=== PATIENT | male | born 1950 | race Caucasian/White ===

== ENCOUNTER 2017-02-19 08:58 | Emergency (ER) | payer MEDICAID, MEDICARE ==
[~2017-02-19] VITALS: Ht 182.9 cm; Wt 64.5 kg
[~2017-02-19 08:58] MED LIST: ALBU0.63 NEB; BACL-19 PO; DOXY-168 PO; IBUP200T48 PO; LISI2.5T PO; METH4TAB2 PO; POTA40LI3 PO; PRED10TA PO; PRED20TA PO; THIA100T10 PO
[2017-02-19] MEDS ORDERED: METOPROLOL 1 MG/ML, 5ML IVPush ONE (09:55)
[2017-02-19] MEDS ORDERED: ASPIRIN 81 MG TABLET CHEW PO ONE (10:00)
[2017-02-19] MEDS ORDERED: SODIUM CHLORIDE FLUSH 10ML SYR IVF ONE (10:00)
[2017-02-19] MEDS ORDERED: ASPIRIN 81 MG TABLET CHEW ONE (10:00)
[2017-02-19] MEDS ORDERED: SODIUM CHLORIDE 0.9% 1,000ML IVBOLUS ONE (10:00)
[2017-02-19] MEDS ORDERED: METOPROLOL 1 MG/ML, 5ML ONE (10:00)
[2017-02-19 10:32] LABS: BLOOD UREA NITROGEN 19 mg/dL (7-18)
[2017-02-19 10:37] LABS: ASPARTATE AMINO TRANSFERASE 48 U/L (15-37)
[2017-02-19 10:38] LABS: IS PT STATUS REG ER OR PRE ER? YES
[2017-02-19] MEDS ORDERED: OXYcodone/APAP 5/325MG TABLET ONE (11:30)
[2017-02-19] MEDS ORDERED: OXYcodone/APAP 5/325MG TABLET PO ONE (11:30)
[2017-02-19 12:23] VITALS: BP 148/86
== END 2017-02-19 12:28 | disposition home or self-care (01) ==
LOC: ED 12:22
DX: R07.89 Other chest pain (principal); J44.9 Chronic obstructive pulmonary disease, unspecified
CPT/HCPCS: 36415; 71010; 80053; 83605; 84484; 85025; 93005; 96360; 96361; 99285; J7030

== ENCOUNTER 2018-02-18 11:15 | Emergency (ER) | payer MEDICARE ==
[~2018-02-18] VITALS: Ht 182.9 cm; Wt 59.8 kg
[~2018-02-18 11:15] MED LIST changes: +BUDE10.2 INH; +CEFD300C37 PO; -DOXY-168 PO; +DOXY100T PO; +DOXY100T10 PO; +FOLI-17 PO; -IBUP200T48 PO; +IBUP200T49 PO; +NICO-487 TD; +THIA100T6 PO; +TIOT18CA INH
[2018-02-18 11:22] VITALS: BP 143/83
[2018-02-18] MEDS ORDERED: DIPHENHYDRAMINE 25 MG CAPSULE PO ONE (11:30)
[2018-02-18] MEDS ORDERED: DIPHENHYDRAMINE 50 MG CAPSULE ONE (11:52)
== END 2018-02-18 11:59 | disposition home or self-care (01) ==
LOC: ED 11:30
DX: B86 Scabies (principal)
CPT/HCPCS: 99283; Q0163

== ENCOUNTER 2018-03-09 23:25 | Inpatient (IN) | payer MEDICARE ==
[~2018-03-09] VITALS: Ht 182.9 cm; Wt 59.0 kg
[~2018-03-09 23:25] MED LIST changes: -POTA40LI3 PO; +POTA40LI7 PO
[2018-03-10] MEDS ORDERED: ALBUTEROL SULFATE 2.5 MG/3 ML NPPB ONE
[2018-03-10] MEDS ORDERED: methylPREDNISolone SOD SUCC 125 MG/2 ML IVP ONE
[2018-03-10] MEDS ORDERED: methylPREDNISolone SOD SUCC 125 MG/2 ML ONE (00:13)
[2018-03-10 00:20] LABS: BASOPHILS # (AUTO) 0.05 x10^3/uL (0-0.1); BASOPHILS % (AUTO) 1 % (0-1); EOSINOPHILS # (AUTO) 0.55 x10^3/uL (0-0.4); EOSINOPHILS % (AUTO) 7 % (1-7); LYMPHOCYTES % (AUTO) 16 % (22-44); MD NO; MEAN CORPUSCULAR HEMOGLOBIN 33.5 pg (27.5-34.5); MEAN CORPUSCULAR VOLUME 101.4 fL (81-97); MEAN PLATELET VOLUME 8.2 fL (7.4-10.4); MONOCYTES # (AUTO) 0.97 x10^3/uL (0.2-0.8); MONOCYTES % (AUTO) 13 % (2-9); NEUTROPHILS # (AUTO) 4.97 x10^3/uL (1.8-6.8); NEUTROPHILS % (AUTO) 64 % (42-75); PLATELET COUNT 293 x10^3/uL (130-400); RED BLOOD COUNT 4.24 x10^6/uL (4.38-5.82); RED CELL DISTRIBUTION WIDTH 15.3 % (9.4-14.8)
[2018-03-10] MEDS ORDERED: ALBUTEROL SULFATE 2.5 MG/3 ML ONE (00:22)
[2018-03-10 00:27] LABS: ALBUMIN 3.2 g/dL (3.4-5.0); ANION GAP 8 mmol/L (5-15); CALCIUM 8.6 mg/dL (8.5-10.1); CHLORIDE 98 mmol/L (98-107); CREATININE 0.77 mg/dL (0.7-1.3)
[2018-03-10 00:30] LABS: TROPONIN I < 0.015 ng/mL (0.000-0.045)
[2018-03-10] MEDS ORDERED: PLEASE ENTER WEIGHT MC SCH (00:30)
[2018-03-10] MEDS ORDERED: AZITHROMYCIN 500 MG in SODIUM CHLORIDE 0.9% 250 ML IV ONE (02:30)
[2018-03-10] MEDS ORDERED: POLYETHYLENE GLYCOL 17 GM PACKET PO PRN (03:00)
[2018-03-10] MEDS ORDERED: hydrALAzine 20 MG/ML, 1ML IVPush PRN (03:00)
[2018-03-10] MEDS ORDERED: POTASSIUM CHLORIDE 20 MEQ TAB.ER.PRT PO ONE (03:00)
[2018-03-10] MEDS ORDERED: GUAIFENESIN/DM 200-20MG, 10ML UDC PO PRN (03:00)
[2018-03-10] MEDS ORDERED: ONDANSETRON ODT 4 MG PO PRN (03:00)
[2018-03-10] MEDS ORDERED: ACETAMINOPHEN 325 MG TABLET PO PRN (03:00)
[2018-03-10] MEDS ORDERED: ALBUTEROL/IPRATROPIUM 2.5MG/0.5MG, 3 ML NPPB PRN (03:30)
[2018-03-10 03:37] VITALS: BP 130/73
[2018-03-10] MEDS ORDERED: PIPERONYL BUTOXIDE/PYRETHRINS SHAMPOO TP SCH (04:00)
[2018-03-10] MEDS ORDERED: PERMETHRIN CRM 5%, 60GM TP SCH (04:00)
[2018-03-10] MEDS: ENOXAPARIN 40 MG/0.4 ML SQ SCH (05:11)
[2018-03-10] MEDS: SODIUM CHLORIDE 0.9% 1,000 ML IV SCH ×2 (05:11→12:59)
[2018-03-10] MEDS: ALBUTEROL/IPRATROPIUM 2.5MG/0.5MG, 3 ML NPPB SCH ×4 (07:00→19:20)
[2018-03-10 08:49] VITALS: BP 106/66
[2018-03-10] MEDS: DOXYCYCLINE 100MG TABLET PO SCH ×2 (08:51→19:59)
[2018-03-10] MEDS: PANTOPROZOLE 40MG TABLET PO SCH (08:51)
[2018-03-10] MEDS: FLUTICASONE/VILANTEROL 200-25MCG/INH INH SCH (08:51)
[2018-03-10 15:10] VITALS: BP 100/63
[2018-03-10 20:32] VITALS: BP 91/48
[2018-03-11 00:28] VITALS: BP 115/62
[2018-03-11] MEDS: ENOXAPARIN 40 MG/0.4 ML SQ SCH (04:51)
[2018-03-11 05:48] LABS: BASOPHILS # (AUTO) 0.08 x10^3/uL (0-0.1); BASOPHILS % (AUTO) 1 % (0-1); EOSINOPHILS # (AUTO) 0.14 x10^3/uL (0-0.4); EOSINOPHILS % (AUTO) 2 % (1-7); LYMPHOCYTES # (AUTO) 1.42 x10^3/uL (1-3.4); LYMPHOCYTES % (AUTO) 15 % (22-44); MD NO; MEAN CORPUSCULAR HEMOGLOBIN 33.2 pg (27.5-34.5); MEAN CORPUSCULAR HGB CONC 33.1 g/dL (33.2-36.2); MEAN CORPUSCULAR VOLUME 100.1 fL (81-97); MEAN PLATELET VOLUME 8.4 fL (7.4-10.4); MONOCYTES # (AUTO) 0.84 x10^3/uL (0.2-0.8); MONOCYTES % (AUTO) 9 % (2-9); NEUTROPHILS # (AUTO) 7.08 x10^3/uL (1.8-6.8); NEUTROPHILS % (AUTO) 74 % (42-75); PLATELET COUNT 277 x10^3/uL (130-400); RED BLOOD COUNT 3.86 x10^6/uL (4.38-5.82); RED CELL DISTRIBUTION WIDTH 14.5 % (9.4-14.8)
[2018-03-11 05:53] LABS: ALBUMIN 2.5 g/dL (3.4-5.0); ANION GAP 4 mmol/L (5-15); CALCIUM 8.5 mg/dL (8.5-10.1); CHLORIDE 107 mmol/L (98-107); CREATININE 0.69 mg/dL (0.7-1.3)
[2018-03-11] MEDS: ALBUTEROL/IPRATROPIUM 2.5MG/0.5MG, 3 ML NPPB SCH ×3 (07:50→20:00)
[2018-03-11 08:22] VITALS: BP 115/66
[2018-03-11] MEDS: PANTOPROZOLE 40MG TABLET PO SCH (08:50)
[2018-03-11] MEDS: FLUTICASONE/VILANTEROL 200-25MCG/INH INH SCH (08:50)
[2018-03-11] MEDS: DOXYCYCLINE 100MG TABLET PO SCH ×2 (08:50→21:16)
[2018-03-11 12:35] VITALS: BP 100/62
[2018-03-11 19:20] VITALS: BP 125/68
[2018-03-12 02:13] VITALS: BP 127/77
[2018-03-12] MEDS: ENOXAPARIN 40 MG/0.4 ML SQ SCH (05:47)
[2018-03-12] MEDS: ALBUTEROL/IPRATROPIUM 2.5MG/0.5MG, 3 ML NPPB SCH ×4 (06:41→20:00)
[2018-03-12 07:10] VITALS: BP 122/75
[2018-03-12] MEDS: PANTOPROZOLE 40MG TABLET PO SCH (08:42)
[2018-03-12] MEDS: FLUTICASONE/VILANTEROL 200-25MCG/INH INH SCH (08:42)
[2018-03-12] MEDS: DOXYCYCLINE 100MG TABLET PO SCH ×2 (08:42→21:03)
[2018-03-12] MEDS ORDERED: FLUT1BLS INH (12:18)
[2018-03-12] MEDS ORDERED: DOXY100T PO (12:18)
[2018-03-12 14:06] VITALS: BP 105/61
[2018-03-12 19:00] VITALS: BP 128/73
[2018-03-13 03:40] VITALS: BP 133/74
[2018-03-13] MEDS: ENOXAPARIN 40 MG/0.4 ML SQ SCH (05:00)
[2018-03-13] MEDS: ALBUTEROL/IPRATROPIUM 2.5MG/0.5MG, 3 ML NPPB SCH ×3 (06:48→20:36)
[2018-03-13 07:56] VITALS: BP 124/77
[2018-03-13] MEDS: PANTOPROZOLE 40MG TABLET PO SCH (09:14)
[2018-03-13] MEDS: FLUTICASONE/VILANTEROL 200-25MCG/INH INH SCH (09:14)
[2018-03-13] MEDS: DOXYCYCLINE 100MG TABLET PO SCH ×2 (09:14→21:08)
[2018-03-13] MEDS ORDERED: ALBUTEROL SULFATE 2.5 MG/3 ML NPPB PRN (10:30)
[2018-03-13 14:00] VITALS: BP 114/65
[2018-03-13 20:59] VITALS: BP 124/65
[2018-03-14 03:29] VITALS: BP 103/44
[2018-03-14] MEDS: ENOXAPARIN 40 MG/0.4 ML SQ SCH (05:01)
[2018-03-14 06:55] VITALS: BP 134/77
[2018-03-14] MEDS: FLUTICASONE/VILANTEROL 200-25MCG/INH INH SCH (08:38)
[2018-03-14] MEDS: DOXYCYCLINE 100MG TABLET PO SCH (08:38)
[2018-03-14] MEDS: PANTOPROZOLE 40MG TABLET PO SCH (08:38)
[2018-03-14] MEDS: ALBUTEROL/IPRATROPIUM 2.5MG/0.5MG, 3 ML NPPB SCH ×2 (09:00→11:40)
[2018-03-14 12:30] VITALS: BP 116/66
== END 2018-03-14 16:00 | disposition home or self-care (01) | DRG 189 ==
LOC: ED 23:59 → EDIP 03-10 02:16 → 5SO 03-10 03:31 → 3NE 03-11 17:47 → DCLOUNGE 03-14 15:47
PROVIDERS: ADMIT Hospitalist; ATTEND Hospitalist
DX: J96.21 Acute and chronic respiratory failure with hypoxia (principal); E43 Unspecified severe protein-calorie malnutrition; J44.1 Chronic obstructive pulmonary disease with (acute) exacerbation; Z68.1 Body mass index [BMI] 19.9 or less, adult; B85.0 Pediculosis due to Pediculus humanus capitis; E87.6 Hypokalemia; I27.20 Pulmonary hypertension, unspecified; F12.90 Cannabis use, unspecified, uncomplicated; F17.210 Nicotine dependence, cigarettes, uncomplicated; F10.20 Alcohol dependence, uncomplicated; Z59.0 Homelessness; Z99.81 Dependence on supplemental oxygen
CPT/HCPCS: 36415; 71045; 80048; 82040; 83735; 84100; 84484; 85025; 93005; 93306; 94640; 96374; J0456; J1650; J7613; J7620; J2930; J7030; J7050

== ENCOUNTER 2018-08-14 16:26 | Emergency (ER) | payer MEDICARE ==
[~2018-08-14] VITALS: Ht 182.9 cm; Wt 68.0 kg
[~2018-08-14 16:26] MED LIST changes: +FLUT1BLS INH; -THIA100T6 PO; +THIA100T67 PO
[2018-08-14] MEDS ORDERED: ACETAMINOPHEN 500 MG TABLET ONE (16:40)
[2018-08-14] MEDS ORDERED: ACETAMINOPHEN 500 MG TABLET PO ONE (17:00)
[2018-08-14 17:02] LABS: BASOPHILS # (AUTO) 0.04 x10^3/uL (0-0.1); BASOPHILS % (AUTO) 0 % (0-1); EOSINOPHILS # (AUTO) 0.01 x10^3/uL (0-0.4); EOSINOPHILS % (AUTO) 0 % (1-7); LYMPHOCYTES # (AUTO) 0.92 x10^3/uL (1-3.4); LYMPHOCYTES % (AUTO) 8 % (22-44); MD NO; MEAN CORPUSCULAR HEMOGLOBIN 32.9 pg (27.5-34.5); MEAN CORPUSCULAR HGB CONC 33.5 g/dL (33.2-36.2); MEAN CORPUSCULAR VOLUME 98.3 fL (81-97); MEAN PLATELET VOLUME 8.1 fL (7.4-10.4); MONOCYTES % (AUTO) 7 % (2-9); NEUTROPHILS # (AUTO) 9.94 x10^3/uL (1.8-6.8); NEUTROPHILS % (AUTO) 85 % (42-75); PLATELET COUNT 286 x10^3/uL (130-400); RED BLOOD COUNT 4.58 x10^6/uL (4.38-5.82); RED CELL DISTRIBUTION WIDTH 16.3 % (9.4-14.8)
[2018-08-14 17:12] LABS: ALANINE AMINOTRANSFERASE 26 U/L (12-78); ALBUMIN 3.7 g/dL (3.4-5.0); ANION GAP 5 mmol/L (5-15); CALCIUM 8.8 mg/dL (8.5-10.1); CHLORIDE 97 mmol/L (98-107); CREATININE 0.98 mg/dL (0.7-1.3)
[2018-08-14 17:17] LABS: ALKALINE PHOSPHATASE 63 U/L (45-117); BILIRUBIN,TOTAL 0.5 mg/dL (0.2-1.0); TOTAL PROTEIN 8.7 g/dL (6.4-8.2); TROPONIN I < 0.015 ng/mL (0.000-0.045)
[2018-08-14 17:30] LABS: RAPID INFLUENZA A Negative (Negative); RAPID INFLUENZA B Negative (Negative)
[2018-08-14] MEDS ORDERED: IBUPROFEN 600 MG TABLET ONE (17:46)
[2018-08-14 17:49] VITALS: BP 109/64
[2018-08-14] MEDS ORDERED: IBUPROFEN 200 MG TABLET PO ONE (18:00)
== END 2018-08-14 18:21 | disposition home or self-care (01) ==
LOC: ED 16:51
DX: J06.9 Acute upper respiratory infection, unspecified (principal); J43.9 Emphysema, unspecified; F17.200 Nicotine dependence, unspecified, uncomplicated
CPT/HCPCS: 36415; 71045; 80053; 83605; 83880; 84484; 85025; 87040; 87400; 99284

== ENCOUNTER 2018-09-17 12:53 | Emergency (ER) | payer MEDICARE ==
[~2018-09-17] VITALS: Ht 182.9 cm; Wt 62.0 kg
[2018-09-17 13:35] VITALS: BP 123/66
[2018-09-17] MEDS ORDERED: hydrOXyzine 50MG TABLET ONE (14:04)
== END 2018-09-17 14:12 | disposition home or self-care (01) ==
LOC: ED 13:50
DX: Z20.7 Contact with and (suspected) exposure to pediculosis, acariasis and other infestations (principal); F17.200 Nicotine dependence, unspecified, uncomplicated
CPT/HCPCS: 99283; Q0177

== ENCOUNTER 2018-10-21 20:41 | Inpatient (IN) | payer MEDICARE ==
[~2018-10-21] VITALS: Ht 167.6 cm; Wt 65.9 kg
[2018-10-21] MEDS: ALBUTEROL/IPRATROPIUM 2.5MG/0.5MG, 3 ML NPPB SCH ×2 (22:24→23:18)
[2018-10-21 22:41] LABS: BASOPHILS # (AUTO) 0.04 x10^3/uL (0-0.1); BASOPHILS % (AUTO) 0 % (0-1); EOSINOPHILS # (AUTO) 0.91 x10^3/uL (0-0.4); EOSINOPHILS % (AUTO) 7 % (1-7); LYMPHOCYTES # (AUTO) 1.31 x10^3/uL (1-3.4); LYMPHOCYTES % (AUTO) 9 % (22-44); MD NO; MEAN CORPUSCULAR HEMOGLOBIN 33.1 pg (27.5-34.5); MEAN CORPUSCULAR HGB CONC 33.3 g/dL (33.2-36.2); MEAN CORPUSCULAR VOLUME 99.4 fL (81-97); MEAN PLATELET VOLUME 8.1 fL (7.4-10.4); MONOCYTES # (AUTO) 1.01 x10^3/uL (0.2-0.8); MONOCYTES % (AUTO) 7 % (2-9); NEUTROPHILS # (AUTO) 10.89 x10^3/uL (1.8-6.8); NEUTROPHILS % (AUTO) 77 % (42-75); PLATELET COUNT 245 x10^3/uL (130-400); RED BLOOD COUNT 3.71 x10^6/uL (4.38-5.82); RED CELL DISTRIBUTION WIDTH 16.1 % (9.4-14.8)
[2018-10-21 22:52] LABS: ALBUMIN 2.8 g/dL (3.4-5.0); ANION GAP 5 mmol/L (5-15); CALCIUM 8.3 mg/dL (8.5-10.1); CHLORIDE 101 mmol/L (98-107); CREATININE 0.66 mg/dL (0.7-1.3)
[2018-10-22] MEDS ORDERED: SODIUM CHLORIDE FLUSH 10ML SYR IVF PRN
--- NOTE | 2018-10-22 00:25 | NUR ---
REPORT GIVEN TO POLO COWAN
[2018-10-22 00:45] VITALS: BP 123/66
[2018-10-22] MEDS ORDERED: ONDANSETRON ODT 4 MG PO PRN (01:00)
[2018-10-22] MEDS ORDERED: BISACODYL 10 MG SUPP PR PRN (01:00)
[2018-10-22] MEDS ORDERED: ALBUTEROL SULFATE 2.5 MG/3 ML NPPB SCH (01:00)
[2018-10-22 01:22] LABS: FOLATE LEVEL 10.6 ng/mL (3.1-17.5)
[2018-10-22] MEDS: CEFTRIAXONE PMX 1GM/50ML 50 ML IV SCH (01:48)
[2018-10-22] MEDS: methylPREDNISolone SOD SUCC 125 MG/2 ML IVPush SCH ×4 (01:49→19:46)
[2018-10-22] MEDS: HEPARIN 5,000 UNITS/ML, 1ML SQ SCH ×3 (01:49→19:46)
[2018-10-22] MEDS: SODIUM CHLORIDE 0.9% 1,000 ML IV SCH ×3 (01:49→23:07)
[2018-10-22] MEDS: GUAIFENESIN/DM 200-20MG, 10ML UDC PO PRN (01:50)
[2018-10-22] MEDS: ACETAMINOPHEN 325 MG TABLET PO PRN ×3 (01:50→23:06)
[2018-10-22] MEDS: NICOTINE 14MG/24 HR PATCH.TD24 TD SCH (01:51)
[2018-10-22] MEDS: DOXYCYCLINE 100 MG in DEXTROSE 5% 250 ML IV SCH ×2 (03:03→15:42)
[2018-10-22 04:50] LABS: MEAN CORPUSCULAR HEMOGLOBIN 32.9 pg (27.5-34.5); MEAN CORPUSCULAR HGB CONC 32.8 g/dL (33.2-36.2); MEAN CORPUSCULAR VOLUME 100.4 fL (81-97); MEAN PLATELET VOLUME 8.4 fL (7.4-10.4); PLATELET COUNT 246 x10^3/uL (130-400); RED BLOOD COUNT 4.17 x10^6/uL (4.38-5.82); RED CELL DISTRIBUTION WIDTH 16.2 % (9.4-14.8)
[2018-10-22 05:00] LABS: ALANINE AMINOTRANSFERASE 15 U/L (12-78); ALBUMIN 2.8 g/dL (3.4-5.0); ANION GAP 3 mmol/L (5-15); CALCIUM 8.4 mg/dL (8.5-10.1); CHLORIDE 101 mmol/L (98-107); CREATININE 0.82 mg/dL (0.7-1.3)
[2018-10-22 05:02] LABS: ALKALINE PHOSPHATASE 59 U/L (45-117); BILIRUBIN,TOTAL 0.5 mg/dL (0.2-1.0); TOTAL PROTEIN 7.1 g/dL (6.4-8.2)
[2018-10-22 05:51] LABS: BASOPHILS # (AUTO) 0.01 x10^3/uL (0-0.1); BASOPHILS % (AUTO) 0 % (0-1); EOSINOPHILS % (AUTO) 0 % (1-7); LYMPHOCYTES # (AUTO) 0.45 x10^3/uL (1-3.4); LYMPHOCYTES % (AUTO) 3 % (22-44); MD SCAN; MONOCYTES # (AUTO) 0.07 x10^3/uL (0.2-0.8); MONOCYTES % (AUTO) 0 % (2-9); NEUTROPHILS # (AUTO) 15.93 x10^3/uL (1.8-6.8); NEUTROPHILS % (AUTO) 97 % (42-75)
[2018-10-22] MEDS: ALBUTEROL SULFATE 2.5 MG/3 ML NPPB SCH ×3 (07:55→21:26)
[2018-10-22] MEDS: BUDESONIDE 0.5 MG/2 ML INHA NPPB SCH ×2 (07:55→21:26)
[2018-10-22] MEDS: SENNA/DOCUSATE TABLET PO SCH (08:20)
[2018-10-22 09:13] VITALS: BP 100/62
[2018-10-22 15:22] VITALS: BP 105/50
[2018-10-22 20:25] VITALS: BP 115/51
[2018-10-23] MEDS: NICOTINE 14MG/24 HR PATCH.TD24 TD SCH (01:30)
[2018-10-23] MEDS: CEFTRIAXONE PMX 1GM/50ML 50 ML IV SCH (01:30)
[2018-10-23] MEDS: methylPREDNISolone SOD SUCC 125 MG/2 ML IVPush SCH ×4 (01:30→20:53)
[2018-10-23] MEDS: DIPHENHYDRAMINE 25 MG CAPSULE PO PRN ×2 (01:57→15:22)
[2018-10-23] MEDS: GUAIFENESIN/DM 200-20MG, 10ML UDC PO PRN (01:57)
[2018-10-23 02:10] VITALS: BP 97/42
[2018-10-23] MEDS: ALBUTEROL SULFATE 2.5 MG/3 ML NPPB SCH ×4 (03:03→21:00)
[2018-10-23] MEDS: DOXYCYCLINE 100 MG in DEXTROSE 5% 250 ML IV SCH ×2 (03:18→14:58)
[2018-10-23] MEDS: HEPARIN 5,000 UNITS/ML, 1ML SQ SCH ×3 (04:29→20:53)
[2018-10-23 06:01] LABS: MEAN CORPUSCULAR HEMOGLOBIN 32.7 pg (27.5-34.5); MEAN CORPUSCULAR HGB CONC 32.7 g/dL (33.2-36.2); MEAN CORPUSCULAR VOLUME 100.2 fL (81-97); MEAN PLATELET VOLUME 8.8 fL (7.4-10.4); PLATELET COUNT 229 x10^3/uL (130-400); RED BLOOD COUNT 3.66 x10^6/uL (4.38-5.82); RED CELL DISTRIBUTION WIDTH 16.1 % (9.4-14.8)
[2018-10-23 06:07] LABS: ANION GAP 4 mmol/L (5-15); CALCIUM 8.9 mg/dL (8.5-10.1); CHLORIDE 102 mmol/L (98-107)
[2018-10-23 06:09] LABS: CREATININE 0.66 mg/dL (0.7-1.3)
[2018-10-23 06:33] LABS: BASOPHILS # (AUTO) 0.05 x10^3/uL (0-0.1); BASOPHILS % (AUTO) 0 % (0-1); EOSINOPHILS % (AUTO) 0 % (1-7); LYMPHOCYTES % (AUTO) 5 % (22-44); MD SCAN; MONOCYTES # (AUTO) 0.54 x10^3/uL (0.2-0.8); MONOCYTES % (AUTO) 3 % (2-9); NEUTROPHILS # (AUTO) 17.78 x10^3/uL (1.8-6.8); NEUTROPHILS % (AUTO) 92 % (42-75)
[2018-10-23 08:39] VITALS: BP 110/60
[2018-10-23] MEDS: BUDESONIDE 0.5 MG/2 ML INHA NPPB SCH ×2 (08:46→21:00)
[2018-10-23] MEDS: SODIUM CHLORIDE 0.9% 1,000 ML IV SCH ×2 (08:52→20:09)
[2018-10-23] MEDS: GUAIFENESIN ER 600 MG TABLET PO SCH ×2 (08:52→20:53)
[2018-10-23] MEDS: SENNA/DOCUSATE TABLET PO SCH (08:53)
[2018-10-23 13:12] VITALS: BP 115/55
[2018-10-23] MEDS: POLYETHYLENE GLYCOL 17 GM PACKET PO PRN (15:22)
[2018-10-23] MEDS: ACETAMINOPHEN 325 MG TABLET PO PRN (16:03)
[2018-10-24] MEDS: NICOTINE 14MG/24 HR PATCH.TD24 TD SCH (01:08)
[2018-10-24] MEDS: CEFTRIAXONE PMX 1GM/50ML 50 ML IV SCH (01:08)
[2018-10-24 01:12] VITALS: BP 100/50
[2018-10-24] MEDS: methylPREDNISolone SOD SUCC 125 MG/2 ML IVPush SCH ×3 (02:52→20:17)
[2018-10-24] MEDS: DOXYCYCLINE 100 MG in DEXTROSE 5% 250 ML IV SCH ×2 (02:52→14:48)
[2018-10-24] MEDS: ALBUTEROL SULFATE 2.5 MG/3 ML NPPB SCH ×4 (03:40→19:51)
[2018-10-24] MEDS: HEPARIN 5,000 UNITS/ML, 1ML SQ SCH ×3 (04:07→20:17)
[2018-10-24] MEDS: DIPHENHYDRAMINE 25 MG CAPSULE PO PRN ×2 (05:54→20:16)
[2018-10-24 08:04] LABS: MEAN CORPUSCULAR HEMOGLOBIN 32.2 pg (27.5-34.5); MEAN CORPUSCULAR HGB CONC 32.1 g/dL (33.2-36.2); MEAN CORPUSCULAR VOLUME 100.4 fL (81-97); PLATELET COUNT 263 x10^3/uL (130-400); RED BLOOD COUNT 3.68 x10^6/uL (4.38-5.82); RED CELL DISTRIBUTION WIDTH 15.8 % (9.4-14.8)
[2018-10-24 08:06] VITALS: BP 102/54
[2018-10-24 08:42] LABS: BASOPHILS # (AUTO) 0.02 x10^3/uL (0-0.1); BASOPHILS % (AUTO) 0 % (0-1); EOSINOPHILS % (AUTO) 0 % (1-7); LYMPHOCYTES # (AUTO) 0.89 x10^3/uL (1-3.4); LYMPHOCYTES % (AUTO) 5 % (22-44); MD SCAN; MONOCYTES # (AUTO) 0.49 x10^3/uL (0.2-0.8); MONOCYTES % (AUTO) 3 % (2-9); NEUTROPHILS # (AUTO) 18.04 x10^3/uL (1.8-6.8); NEUTROPHILS % (AUTO) 93 % (42-75)
[2018-10-24] MEDS: BUDESONIDE 0.5 MG/2 ML INHA NPPB SCH ×2 (09:00→19:51)
[2018-10-24] MEDS: SENNA/DOCUSATE TABLET PO SCH (09:14)
[2018-10-24] MEDS: GUAIFENESIN ER 600 MG TABLET PO SCH ×2 (09:14→20:17)
[2018-10-24] MEDS: SODIUM CHLORIDE 0.9% 1,000 ML IV SCH ×2 (09:17→20:16)
[2018-10-24] MEDS: POLYETHYLENE GLYCOL 17 GM PACKET PO PRN (09:19)
[2018-10-24 13:32] VITALS: BP 140/68
[2018-10-24] MEDS: ACETAMINOPHEN 325 MG TABLET PO PRN (17:52)
[2018-10-24 19:26] VITALS: BP 117/57
[2018-10-25 00:53] VITALS: BP 113/54
[2018-10-25] MEDS: CEFTRIAXONE PMX 1GM/50ML 50 ML IV SCH (01:28)
[2018-10-25] MEDS: NICOTINE 14MG/24 HR PATCH.TD24 TD SCH (01:28)
[2018-10-25] MEDS: ALBUTEROL SULFATE 2.5 MG/3 ML NPPB SCH ×4 (02:16→20:01)
[2018-10-25] MEDS: DOXYCYCLINE 100 MG in DEXTROSE 5% 250 ML IV SCH (03:30)
[2018-10-25] MEDS: HEPARIN 5,000 UNITS/ML, 1ML SQ SCH ×3 (03:31→20:22)
[2018-10-25] MEDS: ACETAMINOPHEN 325 MG TABLET PO PRN (05:48)
[2018-10-25] MEDS: DIPHENHYDRAMINE 25 MG CAPSULE PO PRN ×2 (05:48→20:25)
[2018-10-25] MEDS: BUDESONIDE 0.5 MG/2 ML INHA NPPB SCH ×2 (06:37→20:01)
[2018-10-25 06:47] LABS: BASOPHILS # (AUTO) 0.06 x10^3/uL (0-0.1); BASOPHILS % (AUTO) 0 % (0-1); EOSINOPHILS # (AUTO) 0.01 x10^3/uL (0-0.4); EOSINOPHILS % (AUTO) 0 % (1-7); LYMPHOCYTES # (AUTO) 1.86 x10^3/uL (1-3.4); LYMPHOCYTES % (AUTO) 12 % (22-44); MD NO; MEAN CORPUSCULAR HEMOGLOBIN 32.6 pg (27.5-34.5); MEAN CORPUSCULAR HGB CONC 32.7 g/dL (33.2-36.2); MEAN CORPUSCULAR VOLUME 99.6 fL (81-97); MEAN PLATELET VOLUME 8.1 fL (7.4-10.4); MONOCYTES # (AUTO) 1.09 x10^3/uL (0.2-0.8); MONOCYTES % (AUTO) 7 % (2-9); NEUTROPHILS # (AUTO) 13.14 x10^3/uL (1.8-6.8); NEUTROPHILS % (AUTO) 81 % (42-75); PLATELET COUNT 258 x10^3/uL (130-400); RED BLOOD COUNT 3.84 x10^6/uL (4.38-5.82); RED CELL DISTRIBUTION WIDTH 15.6 % (9.4-14.8)
[2018-10-25 07:30] VITALS: BP 123/71
[2018-10-25] MEDS: GUAIFENESIN ER 600 MG TABLET PO SCH ×2 (08:47→20:22)
[2018-10-25] MEDS: SENNA/DOCUSATE TABLET PO SCH (08:47)
[2018-10-25] MEDS: methylPREDNISolone SOD SUCC 125 MG/2 ML IVPush SCH (08:49)
[2018-10-25] MEDS: SODIUM CHLORIDE 0.9% 1,000 ML IV SCH (08:49)
[2018-10-25] MEDS: CEFDINIR 300 MG CAPSULE PO SCH ×2 (09:38→20:22)
[2018-10-25] MEDS: DOXYCYCLINE 100MG CAP PO SCH ×2 (09:38→20:22)
[2018-10-25 15:16] VITALS: BP 113/55
[2018-10-25 19:02] VITALS: BP 137/80
[2018-10-26 00:27] VITALS: BP 121/63
[2018-10-26] MEDS: NICOTINE 14MG/24 HR PATCH.TD24 TD SCH (00:44)
[2018-10-26] MEDS: ACETAMINOPHEN 325 MG TABLET PO PRN (02:45)
[2018-10-26] MEDS: DIPHENHYDRAMINE 25 MG CAPSULE PO PRN (02:45)
[2018-10-26] MEDS: ALBUTEROL SULFATE 2.5 MG/3 ML NPPB SCH ×3 (03:30→14:04)
[2018-10-26] MEDS: HEPARIN 5,000 UNITS/ML, 1ML SQ SCH ×2 (04:18→13:19)
[2018-10-26 07:37] LABS: MEAN CORPUSCULAR HEMOGLOBIN 32.2 pg (27.5-34.5); MEAN CORPUSCULAR HGB CONC 32.9 g/dL (33.2-36.2); MEAN CORPUSCULAR VOLUME 97.9 fL (81-97); MEAN PLATELET VOLUME 7.5 fL (7.4-10.4); PLATELET COUNT 277 x10^3/uL (130-400); RED CELL DISTRIBUTION WIDTH 15.7 % (9.4-14.8)
[2018-10-26 07:49] VITALS: BP 119/62
[2018-10-26] MEDS: BUDESONIDE 0.5 MG/2 ML INHA NPPB SCH (08:00)
[2018-10-26 08:06] LABS: MD YES
[2018-10-26 08:08] LABS: EOS#(MANUAL) 0.47 x10^3/uL (0.0-0.4); EOS% (MANUAL) 4 % (1-7); LYMPH#(MANUAL) 2.81 x10^3/uL (1-3.4); LYMPHS% (MANUAL) 24 % (22-44); MONOS#(MANUAL) 1.17 x10^3/uL (0.3-2.7); MONOS% (MANUAL) 10 % (2-9); REACTIVE LYMPHS # (MANUAL) 0.47 x10^3/uL (0-0); REACTIVE LYMPHS % (MANUAL) 4 % (0-0); SEG#(MANUAL) 6.79 x10^3/uL (1.8-6.8); SEGS% (MANUAL) 58 % (42-75)
[2018-10-26 08:09] LABS: <PLATELET ESTIMATE> ADEQUATE; <PLT MORPHOLOGY> NORMAL PLT MORPH; ANISOCYTOSIS 1+
[2018-10-26] MEDS ORDERED: ACETAMINOPHEN 325 MG TABLET PO PRN (08:30)
[2018-10-26] MEDS ORDERED: SODIUM CHLORIDE 0.9% 1,000 ML IV SCH (08:30)
[2018-10-26] MEDS: SENNA/DOCUSATE TABLET PO SCH (09:36)
[2018-10-26] MEDS: CEFDINIR 300 MG CAPSULE PO SCH (09:36)
[2018-10-26] MEDS: DOXYCYCLINE 100MG CAP PO SCH (09:36)
[2018-10-26] MEDS: GUAIFENESIN ER 600 MG TABLET PO SCH (09:36)
[2018-10-26] MEDS ORDERED: ALBU10PO PO (13:10)
[2018-10-26] MEDS ORDERED: NICO-486 TD (13:10)
[2018-10-26] MEDS ORDERED: GUAI600T31 PO (13:10)
[2018-10-26 14:00] VITALS: BP 122/62
[2018-10-26 18:41] VITALS: BP 154/80
== END 2018-10-26 19:00 | disposition home or self-care (01) | DRG 189 ==
LOC: ED 23:54 → 4NOR 23:59 → ED 23:59 → 4NOR 10-22 18:58
PROVIDERS: ADMIT Internal Medicine; ATTEND Internal Medicine
DX: J96.21 Acute and chronic respiratory failure with hypoxia (principal); J44.1 Chronic obstructive pulmonary disease with (acute) exacerbation; E44.0 Moderate protein-calorie malnutrition; R65.10 Systemic inflammatory response syndrome (SIRS) of non-infectious origin without acute organ dysfunction; D50.9 Iron deficiency anemia, unspecified; D53.9 Nutritional anemia, unspecified; D72.829 Elevated white blood cell count, unspecified; F10.10 Alcohol abuse, uncomplicated; F12.90 Cannabis use, unspecified, uncomplicated; F17.210 Nicotine dependence, cigarettes, uncomplicated; I10 Essential (primary) hypertension; Z66 Do not resuscitate; Z99.81 Dependence on supplemental oxygen; Z68.23 Body mass index [BMI] 23.0-23.9, adult; R00.0 Tachycardia, unspecified
CPT/HCPCS: 36415; 71045; 80048; 80053; 82040; 82607; 82746; 83880; 85025; 87040; 87070; 87205; 90656; 93005; 94640; 99285; G0378; J0696; J1644; J7060; J7613; J7620; J7626; J2930; J7030; J7512; Q0163

== ENCOUNTER 2018-11-16 14:46 | Inpatient (IN) | payer MEDICARE ==
[~2018-11-16] VITALS: Ht 167.6 cm; Wt 62.1 kg
[~2018-11-16 14:46] MED LIST changes: +ALBU10PO PO; +AZIT500T PO; +GUAI600T31 PO; +IPRA3AMP30 NPPB; +MAGN400T50 PO; +NICO-486 TD
[2018-11-16 15:18] LABS: MEAN CORPUSCULAR HEMOGLOBIN 32.5 pg (27.5-34.5); MEAN CORPUSCULAR HGB CONC 33.2 g/dL (33.2-36.2); MEAN PLATELET VOLUME 7.9 fL (7.4-10.4); PLATELET COUNT 244 x10^3/uL (130-400); RED BLOOD COUNT 4.24 x10^6/uL (4.38-5.82); RED CELL DISTRIBUTION WIDTH 16.1 % (9.4-14.8)
[2018-11-16 15:26] LABS: ANION GAP 5 mmol/L (5-15); CALCIUM 8.1 mg/dL (8.5-10.1); CHLORIDE 96 mmol/L (98-107); CREATININE 0.75 mg/dL (0.7-1.3)
[2018-11-16 15:43] LABS: MD YES
[2018-11-16] MEDS ORDERED: ACETAMINOPHEN 325 MG TABLET ONE (15:50)
[2018-11-16 15:56] LABS: MONOS#(MANUAL) 0.53 x10^3/uL (0.3-2.7); MONOS% (MANUAL) 3 % (2-9); SEG#(MANUAL) 15.05 x10^3/uL (1.8-6.8); SEGS% (MANUAL) 86 % (42-75)
[2018-11-16 15:57] LABS: BANDS%(MANUAL) 8 % (0-7); LYMPH#(MANUAL) 0.53 x10^3/uL (1-3.4); LYMPHS% (MANUAL) 3 % (22-44)
[2018-11-16 15:58] LABS: <PLATELET ESTIMATE> ADEQUATE; <PLT MORPHOLOGY> NORMAL PLT MORPH; <RBC MORPHOLOGY> NORMAL
[2018-11-16] MEDS ORDERED: AZITHROMYCIN 500 MG in SODIUM CHLORIDE 0.9% 250 ML IV ONE (16:00)
[2018-11-16] MEDS ORDERED: ACETAMINOPHEN 325 MG TABLET PO ONE (16:00)
[2018-11-16] MEDS: CEFTRIAXONE 1,000 MG in SODIUM CHLORIDE 0.9% 50 ML IVPB ONE (16:00)
[2018-11-16 16:15] LABS: TROPONIN I < 0.015 ng/mL (0.000-0.045)
[2018-11-16] MEDS ORDERED: ALBUTEROL/IPRATROPIUM 2.5MG/0.5MG, 3 ML ONE (16:50)
[2018-11-16] MEDS ORDERED: NS + 20MEQ KCL 1,000 ML IV SCH (16:54)
[2018-11-16] MEDS ORDERED: VANCOMYCIN PER PHARMACY MC PRN (17:00)
[2018-11-16] MEDS ORDERED: SODIUM CHLORIDE 0.9% 1,000ML IVBOLUS ONE (17:00)
[2018-11-16] MEDS ORDERED: BACLOFEN 10 MG TABLET PO PRN (17:00)
[2018-11-16] MEDS ORDERED: ONDANSETRON 2MG/ML, 2ML IVPush PRN (17:00)
[2018-11-16] MEDS: PIPERACILLIN/TAZO/PMX 4.5GM 100 ML IV SCH (17:00)
--- NOTE | 2018-11-16 17:30 | NUR ---
LATE NOTE ENTRY FOR 1531: Pt presents to ED with c/o 3-4 days of productive cough with light green sputum. Pt wears 3L oxygen on home O2 concentrator at baseline. Pt is on 5 L NC on the wall. Pt is AOX4, has coarse breath sounds auscultated on all lung bray. NADN. Pt is febrile with 101.8 oral temp. Pt denies cp, sob, n/v/d. Pt connected to all monitors. All safety measures in plance. No needs expressed at this time.
[2018-11-16 17:31] LABS: RAPID INFLUENZA A Negative (Negative); RAPID INFLUENZA B Negative (Negative)
--- NOTE | 2018-11-16 17:32 | NUR ---
Provided report to POLO Hunter. All questions answered. Pt ready to transfer to floor from ED.
--- NOTE | 2018-11-16 17:34 | NUR ---
Pt transfered to floor from ED and left with all personal belongings.
[2018-11-16] MEDS: ENOXAPARIN 40 MG/0.4 ML SQ SCH (18:18)
[2018-11-16] MEDS: NICOTINE 14MG/24 HR PATCH.TD24 TD SCH (18:18)
[2018-11-16] MEDS ORDERED: ALBUTEROL/IPRATROPIUM 2.5MG/0.5MG, 3 ML NPPB PRN (18:30)
[2018-11-16] MEDS ORDERED: PHARMACOKINETIC MONITORING MC PRN (18:30)
[2018-11-16] MEDS ORDERED: PHARMACOKINETIC CONSULTATION MC ONE (18:30)
[2018-11-16 18:47] VITALS: BP 107/76
[2018-11-16 18:52] VITALS: BP 97/62
[2018-11-16] MEDS ORDERED: LORazepam 2 MG/ML, 1ML IV PRN ×5 (20:00)
[2018-11-16] MEDS ORDERED: VANCOMYCIN 1,200 MG in SODIUM CHLORIDE 0.9% 250 ML IV SCH (20:00)
[2018-11-16] MEDS ORDERED: LORazepam 1MG TABLET PO PRN ×4 (20:00)
[2018-11-16] MEDS ORDERED: LORazepam 0.5MG TABLET PO PRN (20:00)
[2018-11-16] MEDS: ALBUTEROL SULFATE 2.5 MG/3 ML NPPB SCH ×2 (21:00→23:45)
[2018-11-16] MEDS ORDERED: TEMPLATE NON-FORMULARY MED. (Budesonide/Formoterol Fumarate (Symbicort 160-4.5 Mcg Inhaler INH SCH (21:00)
[2018-11-16] MEDS: BUDESONIDE 0.5 MG/2 ML INHA NPPB SCH (21:15)
[2018-11-16] MEDS: ALBUTEROL/IPRATROPIUM 2.5MG/0.5MG, 3 ML NPPB SCH (21:15)
[2018-11-16] MEDS: GUAIFENESIN ER 600 MG TABLET PO SCH (21:54)
[2018-11-16] MEDS: ACETAMINOPHEN 325 MG TABLET PO PRN (23:30)
[2018-11-17 00:25] VITALS: BP 110/66
[2018-11-17] MEDS: KETOROLAC 30 MG/1 ML IV PRN ×2 (01:16→17:32)
[2018-11-17] MEDS: PIPERACILLIN/TAZO/PMX 4.5GM 100 ML IV SCH ×3 (01:16→17:31)
[2018-11-17 06:09] LABS: ANION GAP 2 mmol/L (5-15); CALCIUM 7.6 mg/dL (8.5-10.1); CHLORIDE 103 mmol/L (98-107); MEAN CORPUSCULAR HEMOGLOBIN 31.9 pg (27.5-34.5); MEAN CORPUSCULAR HGB CONC 32.1 g/dL (33.2-36.2); MEAN CORPUSCULAR VOLUME 99.3 fL (81-97); MEAN PLATELET VOLUME 7.6 fL (7.4-10.4); PLATELET COUNT 216 x10^3/uL (130-400); RED BLOOD COUNT 3.65 x10^6/uL (4.38-5.82); RED CELL DISTRIBUTION WIDTH 16.3 % (9.4-14.8)
[2018-11-17 06:11] LABS: CREATININE 0.51 mg/dL (0.7-1.3)
[2018-11-17] MEDS: ALBUTEROL/IPRATROPIUM 2.5MG/0.5MG, 3 ML NPPB SCH ×4 (06:30→20:20)
[2018-11-17] MEDS: BUDESONIDE 0.5 MG/2 ML INHA NPPB SCH ×2 (06:38→20:20)
[2018-11-17 07:25] VITALS: BP 115/70
[2018-11-17 08:00] LABS: BAND#(MANUAL) 1.48 x10^3/uL; BANDS%(MANUAL) 13 % (0-7); LYMPHS% (MANUAL) 7 % (22-44); MD YES; MONOS#(MANUAL) 0.23 x10^3/uL (0.3-2.7); MONOS% (MANUAL) 2 % (2-9)
[2018-11-17 08:01] LABS: EOS#(MANUAL) 0.23 x10^3/uL (0.0-0.4); EOS% (MANUAL) 2 % (1-7); METAMYELOCYTES# (MANUAL) 0.11 x10^3/uL (0-0); METAMYELOCYTES% (MANUAL) 1 % (0-1); SEG#(MANUAL) 8.55 x10^3/uL (1.8-6.8); SEGS% (MANUAL) 75 % (42-75)
[2018-11-17 08:02] LABS: <PLATELET ESTIMATE> ADEQUATE; <PLT MORPHOLOGY> NORMAL PLT MORPH; <RBC MORPHOLOGY> NORMAL; PMNS WITH VACUOLES 1+; TOXIC GRAN 1+
[2018-11-17] MEDS: GUAIFENESIN ER 600 MG TABLET PO SCH ×2 (08:56→20:12)
[2018-11-17] MEDS: MULTIVITAMINS/MINERALS TABLET PO SCH (08:56)
[2018-11-17] MEDS: THIAMINE 100MG TABLET PO SCH (08:56)
[2018-11-17] MEDS ORDERED: VANCOMYCIN 1,200 MG in SODIUM CHLORIDE 0.9% 250 ML IV SCH (12:00)
[2018-11-17 13:44] VITALS: BP 131/70
[2018-11-17] MEDS: ACETAMINOPHEN 325 MG TABLET PO PRN ×2 (15:20→21:11)
[2018-11-17] MEDS: NICOTINE 14MG/24 HR PATCH.TD24 TD SCH (17:30)
[2018-11-17] MEDS: ENOXAPARIN 40 MG/0.4 ML SQ SCH (18:03)
[2018-11-17 20:04] VITALS: BP 127/75
[2018-11-18] MEDS: PIPERACILLIN/TAZO/PMX 4.5GM 100 ML IV SCH ×3 (01:12→17:20)
[2018-11-18] MEDS: ACETAMINOPHEN 325 MG TABLET PO PRN (01:12)
[2018-11-18 01:43] VITALS: BP 122/72
[2018-11-18] MEDS: KETOROLAC 30 MG/1 ML IV PRN (03:30)
[2018-11-18] MEDS: ALBUTEROL/IPRATROPIUM 2.5MG/0.5MG, 3 ML NPPB SCH ×4 (05:07→18:58)
[2018-11-18 05:43] LABS: BASOPHILS # (AUTO) 0.02 x10^3/uL (0-0.1); BASOPHILS % (AUTO) 0 % (0-1); EOSINOPHILS # (AUTO) 0.26 x10^3/uL (0-0.4); EOSINOPHILS % (AUTO) 2 % (1-7); LYMPHOCYTES # (AUTO) 0.67 x10^3/uL (1-3.4); LYMPHOCYTES % (AUTO) 6 % (22-44); MD NO; MEAN CORPUSCULAR HEMOGLOBIN 31.6 pg (27.5-34.5); MEAN CORPUSCULAR HGB CONC 32.4 g/dL (33.2-36.2); MEAN CORPUSCULAR VOLUME 97.3 fL (81-97); MEAN PLATELET VOLUME 7.8 fL (7.4-10.4); MONOCYTES % (AUTO) 4 % (2-9); NEUTROPHILS # (AUTO) 9.66 x10^3/uL (1.8-6.8); NEUTROPHILS % (AUTO) 88 % (42-75); PLATELET COUNT 218 x10^3/uL (130-400); RED BLOOD COUNT 4.08 x10^6/uL (4.38-5.82); RED CELL DISTRIBUTION WIDTH 16.6 % (9.4-14.8)
[2018-11-18 05:55] LABS: CHLORIDE 97 mmol/L (98-107)
[2018-11-18 06:01] LABS: ANION GAP 2 mmol/L (5-15); CALCIUM 7.9 mg/dL (8.5-10.1); CREATININE 0.56 mg/dL (0.7-1.3)
[2018-11-18 07:41] VITALS: BP 126/75
[2018-11-18] MEDS: BUDESONIDE 0.5 MG/2 ML INHA NPPB SCH ×2 (09:00→18:58)
[2018-11-18] MEDS: GUAIFENESIN ER 600 MG TABLET PO SCH ×2 (09:11→21:13)
[2018-11-18] MEDS: MULTIVITAMINS/MINERALS TABLET PO SCH (09:11)
[2018-11-18] MEDS: THIAMINE 100MG TABLET PO SCH (09:11)
[2018-11-18 14:02] VITALS: BP 133/76
[2018-11-18] MEDS: ENOXAPARIN 40 MG/0.4 ML SQ SCH (17:21)
[2018-11-18] MEDS: NICOTINE 14MG/24 HR PATCH.TD24 TD SCH (17:21)
[2018-11-18 19:45] VITALS: BP 147/74
[2018-11-19] MEDS: PIPERACILLIN/TAZO/PMX 4.5GM 100 ML IV SCH (00:48)
[2018-11-19 01:29] VITALS: BP 123/70
[2018-11-19 04:59] LABS: CHLORIDE 97 mmol/L (98-107); MEAN CORPUSCULAR HEMOGLOBIN 32.6 pg (27.5-34.5); MEAN CORPUSCULAR HGB CONC 33.3 g/dL (33.2-36.2); MEAN CORPUSCULAR VOLUME 97.8 fL (81-97); MEAN PLATELET VOLUME 7.5 fL (7.4-10.4); PLATELET COUNT 232 x10^3/uL (130-400); RED BLOOD COUNT 3.97 x10^6/uL (4.38-5.82); RED CELL DISTRIBUTION WIDTH 15.9 % (9.4-14.8)
[2018-11-19 05:05] LABS: ANION GAP 3 mmol/L (5-15); CALCIUM 8.3 mg/dL (8.5-10.1); CREATININE 0.64 mg/dL (0.7-1.3)
[2018-11-19 05:59] LABS: MD YES
[2018-11-19 06:01] LABS: <PLATELET ESTIMATE> ADEQUATE; <PLT MORPHOLOGY> NORMAL PLT MORPH; <RBC MORPHOLOGY> NORMAL; EOS#(MANUAL) 0.48 x10^3/uL (0.0-0.4); EOS% (MANUAL) 7 % (1-7); LYMPH#(MANUAL) 1.22 x10^3/uL (1-3.4); LYMPHS% (MANUAL) 18 % (22-44); MONOS#(MANUAL) 0.54 x10^3/uL (0.3-2.7); MONOS% (MANUAL) 8 % (2-9); SEG#(MANUAL) 4.56 x10^3/uL (1.8-6.8); SEGS% (MANUAL) 67 % (42-75)
[2018-11-19] MEDS: ALBUTEROL/IPRATROPIUM 2.5MG/0.5MG, 3 ML NPPB SCH ×3 (06:47→13:58)
[2018-11-19] MEDS: BUDESONIDE 0.5 MG/2 ML INHA NPPB SCH (06:48)
[2018-11-19] MEDS ORDERED: AMOXICILLIN/CLAV 875-125MG TABLET PO SCH (07:00)
[2018-11-19 07:26] VITALS: BP 112/69
[2018-11-19] MEDS: THIAMINE 100MG TABLET PO SCH (07:52)
[2018-11-19] MEDS: MULTIVITAMINS/MINERALS TABLET PO SCH (07:52)
[2018-11-19] MEDS: GUAIFENESIN ER 600 MG TABLET PO SCH (07:52)
[2018-11-19] MEDS ORDERED: AMOX1TAB64 PO (15:39)
== END 2018-11-19 15:50 | disposition home or self-care (01) | DRG 871 ==
LOC: ED 16:30 → EDIP 16:34 → 4EST 18:04 → DCLOUNGE 11-19 15:38
PROVIDERS: ADMIT Hospitalist; ATTEND Hospitalist
DX: A41.9 Sepsis, unspecified organism (principal); J18.9 Pneumonia, unspecified organism; J96.21 Acute and chronic respiratory failure with hypoxia; J44.0 Chronic obstructive pulmonary disease with (acute) lower respiratory infection; J44.1 Chronic obstructive pulmonary disease with (acute) exacerbation; J81.1 Chronic pulmonary edema; F10.10 Alcohol abuse, uncomplicated; F12.90 Cannabis use, unspecified, uncomplicated; F17.210 Nicotine dependence, cigarettes, uncomplicated; I10 Essential (primary) hypertension; Y95 Nosocomial condition; Z59.0 Homelessness; Z80.3 Family history of malignant neoplasm of breast; Z99.81 Dependence on supplemental oxygen; Z91.14 Patient's other noncompliance with medication regimen; Z71.6 Tobacco abuse counseling
CPT/HCPCS: 36415; 71045; 80048; 82962; 83605; 83880; 84145; 84484; 85025; 87040; 87070; 87205; 87400; 93005; 93970; 94640; 99291; G0378; J0456; J0696; J1650; J1885; J2543; J3370; J7613; J7620; J7626; J7030; J7050

== ENCOUNTER 2019-02-08 09:43 | Emergency (ER) | payer MEDICARE ==
[~2019-02-08] VITALS: Ht 182.9 cm; Wt 65.0 kg
[~2019-02-08 09:43] MED LIST changes: +AMOX1TAB64 PO
[2019-02-08 09:47] VITALS: BP 133/70
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
[2019-02-08] MEDS ORDERED: KETOROLAC 30 MG/1 ML ONE (10:15)
[2019-02-08] MEDS ORDERED: HYDROcodone/APAP 5/325 TABLET ONE (10:16)
[2019-02-08] MEDS ORDERED: HYDROcodone/APAP 5/325 TABLET PO ONE (10:30)
[2019-02-08] MEDS ORDERED: KETOROLAC 30 MG/1 ML IM ONE (10:30)
--- NOTE | 2019-02-08 10:37 | NUR ---
us complete at this time. pt in bed with nibp and o2 monitoring in place. pt on room air at this time with o2 sat of 93%. pt states he is prescribed o2 / but is unable to have due to homelessness. pt maintains o2 sat of 93 while awake but went down to 89 when sleeping.
--- NOTE | 2019-02-08 11:06 | NUR ---
pt resting in bed at this time. arousable to voice. awaiting results of tests and awaiting further orders at this time. pt states positive pain relief from medication.
== END 2019-02-08 12:01 | disposition home or self-care (01) ==
LOC: ED 09:54
DX: M79.661 Pain in right lower leg (principal); M25.571 Pain in right ankle and joints of right foot; B85.1 Pediculosis due to Pediculus humanus corporis; M13.871 Other specified arthritis, right ankle and foot; G89.29 Other chronic pain; I10 Essential (primary) hypertension; J43.9 Emphysema, unspecified
CPT/HCPCS: 73610; 93971; 96372; 99284; J1885

== ENCOUNTER 2019-07-16 14:11 | Emergency (ER) | payer MEDICARE ==
[~2019-07-16] VITALS: Ht 182.9 cm; Wt 60.4 kg
[2019-07-16 14:50] VITALS: BP 131/81
[2019-07-16] MEDS ORDERED: CEPHALEXIN 500 MG CAPSULE PO ONE (15:30)
[2019-07-16] MEDS ORDERED: CEPHALEXIN 500 MG CAPSULE ONE (15:40)
== END 2019-07-16 15:53 | disposition home or self-care (01) ==
LOC: ED 15:47
DX: L03.012 Cellulitis of left finger (principal); I10 Essential (primary) hypertension; M19.90 Unspecified osteoarthritis, unspecified site; J43.9 Emphysema, unspecified; F17.200 Nicotine dependence, unspecified, uncomplicated
CPT/HCPCS: 99283

== ENCOUNTER 2020-10-31 21:40 | Emergency (ER) | payer MEDICARE, MEDICAID ==
[~2020-10-31] VITALS: Ht 182.9 cm; Wt 74.0 kg
[~2020-10-31 21:40] MED LIST changes: +ALBU18HF PO; +ASPI-496 PO; +AZIT250T PO; +Albuterol-Ipratropium Mdi INH; +BUDE10.22 PO; +CARV3.1212 PO; -DOXY100T10 PO; +DOXY100T23 PO; -FOLI-17 PO; +FOLI1TAB32 PO; +FURO20TA3 PO; +GUAI200T37 PO; +LISI5TAB7 PO; +METO-282 PO; -NICO-487 TD; +NICO-587 TD
[2020-10-31] MEDS ORDERED: SILVER SULF. CRM 1% , 25GM ONE (22:27)
[2020-10-31] MEDS ORDERED: SILVER SULF. CRM 1% , 25GM TP ONE (22:30)
[2020-10-31 22:58] VITALS: BP 132/74
== END 2020-10-31 23:02 | disposition home or self-care (01) ==
LOC: ED 22:20
DX: T20.20XA Burn of second degree of head, face, and neck, unspecified site, initial encounter (principal); J43.9 Emphysema, unspecified; G89.29 Other chronic pain; I10 Essential (primary) hypertension; F17.210 Nicotine dependence, cigarettes, uncomplicated; X08.8XXA Exposure to other specified smoke, fire and flames, initial encounter; Y93.89 Activity, other specified; Y92.89 Other specified places as the place of occurrence of the external cause; Y99.8 Other external cause status
CPT/HCPCS: 16020; 99283; 99406